=== PATIENT | male | born 1985 | race Hispanic/Latino ===

== ENCOUNTER 2017-06-28 02:19 | Emergency (ER) | payer OTHER ==
[~2017-06-28] VITALS: Ht 170.2 cm; Wt 127.0 kg
[2017-06-28] MEDS ORDERED: KETOROLAC TROMETHAMINE 30 MG/ML VIAL IV STA (02:32)
[2017-06-28 02:39] LABS: BASOPHILS % 0.4 % (0.0-1.0); CLARITY,URINE CLOUDY (CLEAR); COLOR,URINE YELLOW (YELLOW); EOSINOPHILS # (AUTO) 0.1 (0.0-0.4); EOSINOPHILS % 0.9 % (0.0-6.0); HEMATOCRIT 42.4 % (38.2-49.6); HEMOGLOBIN 14.5 g/dL (14.0-18.0); LYMPHOCYTES % 47.2 % (18.0-39.1); MEAN CORPUSCULAR HEMOGLOBIN 30.8 pg (28-32); MEAN CORPUSCULAR HGB CONC 34.2 g/dL (31-35); MONOCYTES # (AUTO) 0.7 (0.2-0.8); MONOCYTES % 6.8 % (4.4-11.3); NEUTROPHILS # (AUTO) 4.7 (2.1-6.9); NEUTROPHILS % 44.4 % (38.7-80.0); PLATELET COUNT 223 x10e3/uL (140-360); RED BLOOD COUNT 4.71 x10e6/uL (4.3-5.7); RED CELL DISTRIBUTION WIDTH 12.6 % (11.7-14.4)
[2017-06-28 02:50] LABS: BILIRUBIN,URINE NEGATIVE (NEGATIVE); KETONES,URINE NEGATIVE (NEGATIVE); LEUKOCYTE ESTERASE ,URINE NEGATIVE (NEGATIVE); NITRITE,URINE NEGATIVE (NEGATIVE); PROTEIN,URINE DIPSTICK 1+ (NEGATIVE); URINE UROBILINOGEN 0.2 mg/dL (0.2 - 1)
[2017-06-28 02:53] LABS: BACTERIA,URINE FEW /HPF; EPITHELIAL CELLS,URINE RARE /LPF; RBC,URINE >50 /HPF (0-5); WBC,URINE (MAN) 0-5 /HPF (0-5)
[2017-06-28 03:06] LABS: ALANINE AMINOTRANSFERASE 123 IU/L (0-55); ALBUMIN 3.7 g/dL (3.5-5.0); ALBUMIN/GLOBULIN RATIO 0.8 (0.8-2.0); ALKALINE PHOSPHATASE 141 IU/L (40-150); ANION GAP 13.5 mmol/L (8-16); BLOOD UREA NITROGEN 11 mg/dL (7-26); BUN/CREATININE RATIO 11 (6-25); CALCIUM 9.4 mg/dL (8.4-10.2); CARBON DIOXIDE 25 mmol/L (22-29); CHLORIDE 104 mmol/L (98-107); CREATININE, SERUM 0.99 mg/dL (0.72-1.25); EST GLOMERULAR FILTRATION RATE > 60 ML/MIN (60-); GLUCOSE 173 mg/dL (74-118); POTASSIUM 3.5 mmol/L (3.5-5.1); SODIUM 139 mmol/L (136-145)
--- NOTE | 2017-06-28 03:18 | Diagnostic Imaging Report ---
EXAM: CT ABDOMEN/PELVIS WO DATE: 06/28/2017 2:30 AM INDICATION: Left flank pain COMPARISON: None TECHNIQUE: The abdomen and pelvis were scanned using a multidetector helical scanner. Coronal and sagittal reformations were obtained. Routine protocol performed. IV Contrast: 0 ml Isovue 370 FINDINGS: Lack of IV contrast decreases sensitivity in evaluating abdominal and pelvic organs. LOWER THORAX: No consolidations LIVER/BILIARY: No masses. No ductal dilatation. GALLBLADDER: Unremarkable SPLEEN: Unremarkable PANCREAS: Unremarkable ADRENALS: No nodules KIDNEYS: Mild left hydroureteronephrosis related to a 2 to 3 mm calculus at the left UVJ. 2 mm nonobstructing right interpolar and likely punctate right inferior renal calculi. GI TRACT: No wall thickening or evidence of obstruction. Normal appendix. VESSELS: Normal caliber. PERITONEUM/RETROPERITONEUM: No free air or fluid LYMPH NODES: No lymphadenopathy REPRODUCTIVE ORGANS/BLADDER: Unremarkable BONES: No suspicious bone lesions. IMPRESSION: Mild left hydroureteronephrosis related to a 2 to 3 mm left UVJ stone. Signed by: Dr Eileen Henriquez MD on 06/28/2017 3:15 AM
[2017-06-28 03:37] VITALS: BP 131/84
== END 2017-06-28 03:43 | disposition home or self-care (01) ==
LOC: ER 02:19
DX: R10.32 Left lower quadrant pain (principal); R11.0 Nausea; N20.1 Calculus of ureter
CPT/HCPCS: 36415; 74176; 80053; 81001; 85025; 96374; 99284; J1885

== ENCOUNTER 2017-07-05 05:04 | Emergency (ER) | payer OTHER ==
[~2017-07-05] VITALS: Ht 170.2 cm; Wt 127.0 kg
--- OUTSIDE RECORDS SUMMARY | 2017-07-05 05:07 | XMS REPORT | Continuity of Care Document ---
Author Author [facility] Organization [facility] Address [address] [place] [address] Phone Unavailable Care Team Providers Care Electronic Component Processor Name Role Phone NO, PCP PCP Unavailable Advance Directives Directive Response Recorded Date/Time Does the patient have an advance directive? No 06/28/17 2:18am If yes, is advance directive on file with [facility]? No 06/28/17 2:18am If not on file with [facility] will patient provide a copy? No 06/28/17 2:18am Do you have a Directive to Physician? No 06/28/17 2:18am Do you have a Medical Power of Heel Coverer Machine Operator? No 06/28/17 2:18am Do you have an out of hospital Do Not Resuscitate Order? No 06/28/17 2:18am Do you have any special needs we should be aware of? No 06/28/17 2:18am Do you have a support person here with you today? Yes 06/28/17 2:18am Did patient receive Notice of Privacy Practices? Yes 06/28/17 2:18am Did patient receive patient rights and responsibilities? Yes 06/28/17 2:18am Problems No problem information available. Medications No medication information available. Social History Smoking Status Start Date Stop Date Current some day smoker Hospital Discharge Instructions No hospital discharge instruction information available. Plan of Care Discharge Date 06/28/17 3:43am Disposition HOME, SELF-CARE Condition at Discharge Stable Instructions/Education Provided Kidney Stones Forms Provided Work/School Excuse Prescriptions See Medication Section Referrals NO,FAMILY Order Date: Call for an appointment Additional Instructions/Education dc home follow up with pcp take meds as directed return to the er with any emergent conditions Functional Status No functional status information available. Allergies, Adverse Reactions, Alerts No known allergies. Immunizations No immunization information available. Vital Signs Acute Vital Signs Vital Response Date/Time Temperature (Fahrenheit) 98.3 degrees F (97.6 - 99.5) 06/28/2017 3:37am Pulse Pulse Rate (adult) 85 bpm (60 - 90) 06/28/2017 3:37am Respiratory Rate 20 bpm (12 - 24) 06/28/2017 3:37am Blood Pressure 131/84 mm Hg 06/28/2017 3:37am Height 5 ft 7 in 06/28/2017 2:29am Weight 280 lb 06/28/2017 2:29am Body Mass Index 43.9 kg/m^2 06/28/2017 2:29am Results Laboratory Results Test Name Result Units Flags Reference Collection Date/Time Result Date/ Time Comments White Blood Count 10.49 x10e3/uL 4.8-10.8 06/28/2017 2:2506/28/2017 2:39am Red Blood Count 4.71 x10e6/uL 4.3-5.7 06/28/2017 2:06/28/2017 2: 39am Hemoglobin 14.5 g/dL 14.0-18.0 06/28/2017 2:06/28/2017 2:39am Hematocrit 42.4 % 38.2-49.6 06/28/2017 2:06/28/2017 2:39am Mean Corpuscular Volume 90.0 fL 81-99 06/28/2017 2:06/28/2017 2: 39am Mean Corpuscular Hemoglobin 30.8 pg 28-32 06/28/2017 2:06/28/2017 2:39am Mean Corpuscular Hemoglobin Concent 34.2 g/dL 31-35 06/28/2017 2:06/28/2017 2:39am Red Cell Distribution Width 12.6 % 11.7-14.4 06/28/2017 2:252017 2:39am Platelet Count 223 x10e3/uL 140-360 06/28/2017 2:2506/28/2017 2: 39am Neutrophils (%) (Auto) 44.4 % 38.7-80.0 06/28/2017 2:06/28/2017 2: 39am Lymphocytes (%) (Auto) 47.2 % H 18.0-39.1 06/28/2017 2:06/28/2017 2 :39am Monocytes (%) (Auto) 6.8 % 4.4-11.3 06/28/2017 2:06/28/2017 2: 39am Eosinophils (%) (Auto) 0.9 % 0.0-6.0 06/28/2017 2:06/28/2017 2: 39am Basophils (%) (Auto) 0.4 % 0.0-1.0 06/28/2017 2:06/28/2017 2:39am IM GRANULOCYTES % 0.3 % 0.0-1.0 06/28/2017 2:06/28/2017 2:39am Neutrophils # (Auto) 4.7 2.1-6.9 06/28/2017 2:06/28/2017 2:39am Lymphocytes # (Auto) 5.0 H 1.0-3.2 06/28/2017 2:06/28/2017 2: 39am Monocytes # (Auto) 0.7 0.2-0.8 06/28/2017 2:06/28/2017 2:39am Eosinophils # (Auto) 0.1 0.0-0.4 06/28/2017 2:06/28/2017 2:39am Basophils # (Auto) 0.0 0.0-0.1 06/28/2017 2:06/28/2017 2:39am Absolute Immature Granulocyte (auto 0.03 x10e3/uL 0-0.1 06/28/2017 2: 06/28/2017 2:39am Urine Color YELLOW YELLOW 06/28/2017 2:06/28/2017 2:50am Urine Clarity CLOUDY H CLEAR 06/28/2017 2:06/28/2017 2:50am Urine Specific [place] 1.025 1.010-1.025 06/28/2017 2:2017 2:50am Urine pH 5 5 - 7 06/28/2017 2:06/28/2017 2:50am Urine Leukocyte Esterase NEGATIVE NEGATIVE 06/28/2017 2:2017 2:50am Urine Nitrite NEGATIVE NEGATIVE 06/28/2017 2:06/28/2017 2:50am Urine Protein 1+ H NEGATIVE 06/28/2017 2:2506/28/2017 2:50am Urine Glucose (UA) NEGATIVE NEGATIVE 06/28/2017 2:06/28/2017 2: 50am Urine Ketones NEGATIVE NEGATIVE 06/28/2017 2:06/28/2017 2:50am Urine Urobilinogen 0.2 mg/dL 0.2 - 1 06/28/2017 2:06/28/2017 2: 50am Urine Bilirubin NEGATIVE NEGATIVE 06/28/2017 2:06/28/2017 2: 50am Urine Blood 4+ H NEGATIVE 06/28/2017 2:06/28/2017 2:50am Urine WBC 0-5 /HPF 0-5 06/28/2017 2:06/28/2017 2:53am Urine RBC >50 /HPF H 0-5 06/28/2017 2:06/28/2017 2:53am Urine Bacteria FEW /HPF NONE 06/28/2017 2:06/28/2017 2:53am Urine Epithelial Cells RARE /LPF NONE 06/28/2017 2:06/28/2017 2: 53am Sodium Level 139 mmol/L 136-145 06/28/2017 2:06/28/2017 3:08am Potassium Level 3.5 mmol/L 3.5-5.1 06/28/2017 2:06/28/2017 3:08am Chloride Level 104 mmol/L 98-107 06/28/2017 2:06/28/2017 3:08am Carbon Dioxide Level 25 mmol/L -06/28/2017 2:06/28/2017 3: 08am Anion Gap 13.5 mmol/L 8-16 06/28/2017 2:06/28/2017 3:08am Blood Urea Nitrogen 11 mg/dL 7-06/28/2017 2:06/28/2017 3:08am Creatinine 0.99 mg/dL 0.72-1.25 06/28/2017 2:06/28/2017 3:08am BUN/Creatinine Ratio 11 6-25 06/28/2017 2:06/28/2017 3:08am Estimat Glomerular Filtration Rate > 60 ML/MIN 60- 06/28/2017 2: 3:08am Ranges were taken from the National Kidney Disease Education Program and the National [employer] literature. Reference ranges: 60 or greater: Normal 16-59 (for 3 consecutive months): Chronic kidney disease 15 or less: Kidney failure Glucose Level 173 mg/dL H 74-118 06/28/2017 2:06/28/2017 3:08am Calcium Level 9.4 mg/dL 8.4-10.2 06/28/2017 2:06/28/2017 3:08am Total Bilirubin 0.5 mg/dL 0.2-1.2 06/28/2017 2:06/28/2017 3:08am Aspartate Amino Transf (AST/SGOT) 50 IU/L H 5-34 06/28/2017 2:06/28 3:08am Alanine Aminotransferase (ALT/SGPT) 123 IU/L H 0-55 06/28/2017 2: 3:08am Total Protein 8.1 g/dL 6.5-8.1 06/28/2017 2:06/28/2017 3:08am Albumin 3.7 g/dL 3.5-5.0 06/28/2017 2:06/28/2017 3:08am Globulin 4.4 g/dL H 2.3-3.5 06/28/2017 2:06/28/2017 3:08am Albumin/Globulin Ratio 0.8 0.8-2.0 06/28/2017 2:06/28/2017 3: 08am Alkaline Phosphatase 141 IU/L 40-150 06/28/2017 2:06/28/2017 3: 08am Procedures Procedure Status Date Provider(s) CT of abdomen and pelvis without contrast Active 06/28/17 PETTY PYLE MD Encounters Encounter Location Arrival/Admit Date Discharge/Depart Date Attending Provider Departed Emergency Room [facility] 06/28/17 2:19am 3:43am PETTY PYLE MD
--- OUTSIDE RECORDS SUMMARY | 2017-07-05 05:07 | XMS REPORT ---
Author Author [facility] Address Unknown Phone Unavailable Care Team Providers Care Head Scorer Name Role Phone PETTY PYLE Unavailable Unavailable Problems This patient has no known problems. Allergies, Adverse Reactions, Alerts This patient has no known allergies or adverse reactions. Medications This patient has no known medications. Results Test Description Test Time Test Comments Text Results Atomic Results Result Comments CT ABDOMEN/PELVIS WO [place] [address] Patient Name: SHEILA PECK MR #: [id number] : 1985 Age/Sex: 31/M Req #: [id number] Adm Physician: Ordered by: PETTY PYLE MD Report #: [id number] Location: ER Room/Bed: ___ Procedure: [id number] CT/CT ABDOMEN/PELVIS WO Exam Date: 06/28/17 Exam Time: 0238 REPORT STATUS: Signed EXAM: CT ABDOMEN/PELVIS WO DATE: 06/28/2017 2:30 AM INDICATION: Left flank pain COMPARISON: None TECHNIQUE: The abdomen and pelvis were scanned using a multidetector helical scanner. Coronal and sagittal reformations were obtained. Routine protocol performed. IV Contrast: 0 ml Isovue 370 FINDINGS: Lack of IV contrast decreases sensitivity in evaluating abdominal and pelvic organs. LOWER THORAX: No consolidations LIVER/BILIARY: No masses. No ductal dilatation. GALLBLADDER: Unremarkable SPLEEN: Unremarkable PANCREAS: Unremarkable ADRENALS: No nodules KIDNEYS: Mild left hydroureteronephrosis related to a 2 to 3 mm calculus at the left UVJ. 2 mm nonobstructing right interpolar and likely punctate right inferior renal calculi. GI TRACT: No wall thickening or evidence of obstruction. Normal appendix. VESSELS: Normal caliber. PERITONEUM/RETROPERITONEUM: No free air or fluid LYMPH NODES: No lymphadenopathy REPRODUCTIVE ORGANS/BLADDER : Unremarkable BONES: No suspicious bone lesions. IMPRESSION: Mild left hydroureteronephrosis related to a 2 to 3 mm left UVJ stone. Signed by : Dr Monica Henriquez MD on 06/28/2017 3:15 AM Dictated By: MONICA HENRIQUEZ MD 4 Transcribed By: DARSHAN on 06/28/17314 COPY TO: PETTY PYLE MD
[2017-07-05] MEDS ORDERED: KETOROLAC TROMETHAMINE 60 MG/2 ML VIAL IM ONE (05:30)
[2017-07-05 05:52] LABS: COLOR,URINE YELLOW (YELLOW)
[2017-07-05 05:53] LABS: BILIRUBIN,URINE NEGATIVE (NEGATIVE); CLARITY,URINE CLEAR (CLEAR); KETONES,URINE NEGATIVE (NEGATIVE); LEUKOCYTE ESTERASE ,URINE NEGATIVE (NEGATIVE); NITRITE,URINE NEGATIVE (NEGATIVE); PROTEIN,URINE DIPSTICK NEGATIVE (NEGATIVE); URINE UROBILINOGEN 0.2 mg/dL (0.2 - 1)
[2017-07-05 05:55] LABS: WBC,URINE (MAN) 0-5 /HPF (0-5)
[2017-07-05 05:56] LABS: EPITHELIAL CELLS,URINE FEW /LPF
== END 2017-07-05 06:04 | disposition home or self-care (01) ==
LOC: ER 05:04
DX: R10.32 Left lower quadrant pain (principal); N20.1 Calculus of ureter
CPT/HCPCS: 81001; 99282; J1885

== ENCOUNTER 2024-02-27 15:43 | Emergency (ER) | payer BC ==
[~2024-02-27] VITALS: Ht 170.2 cm; Wt 127.0 kg
[2024-02-27] MEDS ORDERED: ULTRAM 50MG50 MG PO (17:05)
[2024-02-27] MEDS ORDERED: KETOROLAC TROME10 MG PO (17:05)
[2024-02-27] MEDS ORDERED: CIPRO500 MG PO (17:05)
[2024-02-27 17:27] VITALS: PULSE 71; RESP 18; TEMP 98.3; O2SAT 95
[2024-02-27] MEDS: KETOROLAC TROMETHAMINE 30 MG/ML VIAL IV STA (18:11)
== END 2024-02-27 17:27 | disposition home or self-care (01) ==
LOC: FSED 15:50
DX: N30.91 Cystitis, unspecified with hematuria (principal); R10.9 Unspecified abdominal pain; E11.65 Type 2 diabetes mellitus with hyperglycemia
CPT/HCPCS: 74176; 80053; 81003; 85025; 87086; 87186; 99284; J1885